=== PATIENT | male | born 1985 | race Caucasian/White ===

== ENCOUNTER 2018-07-14 21:42 | Emergency (ER) | payer BC ==
[~2018-07-14] VITALS: Ht 193 cm; Wt 85.3 kg
[2018-07-14 22:01] VITALS: Ht 193 cm; Wt 85.3 kg
[2018-07-14 23:52] VITALS: BP 128/73
== END 2018-07-14 23:52 | disposition home or self-care (01) ==
LOC: ED 21:42
DX: S01.112A Laceration without foreign body of left eyelid and periocular area, initial encounter (principal); W22.8XXA Striking against or struck by other objects, initial encounter; Y93.67 Activity, basketball; Y92.310 Basketball court as the place of occurrence of the external cause; Y99.8 Other external cause status
CPT/HCPCS: 90715